=== PATIENT | male | born 1970 | race African-American/Black ===

== ENCOUNTER 2019-02-04 14:31 | Emergency (ER) | payer BC, OTHER ==
--- OUTSIDE RECORDS SUMMARY | 2019-02-04 14:34 | XMS REPORT ---
:1970 Author Organization [facility] Address [address] [place] [address] Care Team Providers Name Role Phone Unavailable Unavailable Unavailable Problems This patient has no known problems. Allergies, Adverse Reactions, Alerts This patient has no known allergies or adverse reactions. Medications This patient has no known medications. Encounters Start End Encounter Admission Attending Care Care Encounter Date/Time Date/Time Type Type Clinicians Facility Department ID 2018-10-06 2018-10-06 Emergency E [facility] [id number] 15:43:00 15:43:00
[2019-02-04] MEDS ORDERED: dexAMETHasone 10 MG/ML VIAL ONE (15:23)
[2019-02-04] MEDS ORDERED: ALBUTEROL 2.5 MG/3 ML NEB SOL ONE (15:36)
--- NOTE | 2019-02-04 16:54 | EDPHYS ---
[facility] Name: Vita Singer Age: 49 yrs Sex: Male : 1970 Arrival Date: 02/04/2019 Time: 14:45 Bed 14 Private MD: ED Physician Oh Styles HPI: 02/04 15:23 This 49 yrs old presents to ER via Ambulatory with complaints of Cough, Vomiting, jmm Sneezing, Chest Pain. 15:23 The patient or guardian reports cough. Onset: The symptoms/episode began/occurred jmm gradually. Modifying factors: The symptoms are alleviated by nothing, the symptoms are aggravated by nothing. Associated signs and symptoms: Pertinent positives: chest pain, with cough, Pertinent negatives: fever. This is a 49 year old male with no chronic medical conditions that presents to the ED with complaints of cough, congestion, vomiting. Patient complains of chest pain after cough. Vomiting occurs after vomiting. . Historical: - Allergies: 14:52 No Known Allergies; rv - Home Meds: 14:52 None [Active]; rv - PMHx: 14:52 None; rv - PSHx: 14:52 thyroid surgery; rv - Immunization history:: Adult Immunizations up to date. - Social history:: Smoking status: Patient/guardian denies using tobacco. - Ebola Screening: : No symptoms or risks identified at this time. ROS: 16:25 Constitutional: Positive for body aches, chills. jmm 16:25 Cardiovascular: Positive for chest pain, with cough. 16:25 Respiratory: Positive for cough. 16:25 Abdomen/GI: Positive for nausea, vomiting, Negative for abdominal pain, diarrhea. 16:25 All other systems are negative. Exam: 16:25 Constitutional: This is a well developed, well nourished patient who is awake, alert, jmm and in no acute distress. Head/Face: atraumatic. Eyes: EOMI, no conjunctival erythema appreciated ENT: Moist Mucus Membranes Neck: Trachea midline, Supple Chest/axilla: Normal chest wall appearance and motion. Cardiovascular: Regular rate and rhythm. No edema appreciated Respiratory: Normal respirations, no respiratory distress appreciated Abdomen/GI: Non distended, soft Back: Normal ROM 16:25 Skin: General appearance color normal MS/ Extremity: Moves all extremities, no obvious deformities appreciated, no edema noted to the lower extremities Neuro: Awake and alert, normal gait Psych: Behavior is normal, Mood is normal, Patient is cooperative and pleasant 16:25 Abdomen/GI: Inspection: abdomen appears normal, Bowel sounds: normal, Palpation: abdomen is soft and non-tender, in all quadrants. Vital Signs: 14:50 BP 153 / 105; Pulse 100; Resp 19; Temp 98.1; Pulse Ox 98% ; Weight 136.08 kg; Height 5 rv ft. 8 in. (172.72 cm); Pain 0/10; 15:50 BP 149 / 105; Pulse 86; Resp 18; Pulse Ox 100% on R/A; rb1 16:43 BP 151 / 106; Pulse 89; Resp 18; Pulse Ox 99% on R/A; Pain 0/10; rb1 14:50 Body Mass Index 45.61 (136.08 kg, 172.72 cm) rv MDM: 15:02 Patient medically screened. [facility] 16:26 Data reviewed: vital signs, nurses notes. Counseling: I had a detailed discussion with teresa the patient and/or guardian regarding: the historical points, exam findings, and any diagnostic results supporting the discharge/admit diagnosis, the need for outpatient follow up, to return to the emergency department if symptoms worsen or persist or if there are any questions or concerns that arise at home. ED course: Patient is alert and non toxic in appearance in the ED. Patient is advised to follow up with pcp and otherwise given strict return precautions. Patient understood and agrees with the plan of care. . Administered Medications: 15:24 Drug: Decadron 10 mg Route: IM; Site: right deltoid; rb1 15:40 Follow up: Response: No adverse reaction rb1 15:37 Drug: Albuterol 2.5 mg Route: Inhalation; rb1 16:02 Drug: Albuterol 2.5 mg Route: Inhalation; rb1 16:25 Drug: Albuterol 2.5 mg Route: Inhalation; rb1 Disposition: 02/04/19 16:27 Discharged to Home. Impression: Acute bronchitis. - Condition is Stable. - Discharge Instructions: Acute Bronchitis, Adult. - Prescriptions for promethazine- DM - take 5 milliliter by ORAL route every 4-6 hours; 120 milliliter. Zithromax Z- Oleksandr 250 mg Oral Tablet - take 1 tablet by ORAL route as directed for 5 days Day 1 - take two (2) tablets one time. Day 2, 3, 4 , 5 take one (1) tablet once daily.; 6 tablet. Albuterol Sulfate 90 mcg/actuation - inhale 1-2 puff by INHALATION route every 4-6 hours; 1 Inhaler. - Medication Reconciliation Form, Thank You Letter, Antibiotic Education, Prescription Opioid Use form. - Follow up: Private Physician; When: 2 - 3 days; Reason: Recheck today's complaints, Continuance of care, Re-evaluation by your physician. Addendum: 02/12/2019 07:28 Co-signature as Attending Physician, Oh Styles MD. m a2 Signatures: Thiago Harrison PA PA jmm Barber, Rebecca, RN RN rb1 Oh Styles MD MD ma2 Graham Jurado RN RN rv Corrections: (The following items were deleted from the chart) 02/04 16:44 16:27 02/04/2019 16:27 Discharged to Home. Impression: Acute bronchitis. Condition is rb1 Stable. Forms are Medication Reconciliation Form, Thank You Letter, Antibiotic Education, Prescription Opioid Use. Follow up: Private Physician; When: 2 - 3 days; Reason: Recheck today's complaints, Continuance of care, Re-evaluation by your physician. teresa
--- NOTE | 2019-02-04 16:55 | ER ---
Nurse's Notes [facility] Name: Vita Singer Age: 49 yrs Sex: Male : 1970 Arrival Date: 02/04/2019 Time: 14:45 Bed 14 Private MD: Diagnosis: Acute bronchitis Presentation: 02/04 14:47 Presenting complaint: Patient states: checked on urgent care and diagnosed with rv Bronchitis. coughing a lot until vomits, then complains of SOB and chest pain after that. denies any fever and/or abdominal pain. Transition of care: patient was not received from another setting of care. Onset of symptoms was February 02, 2019 at 08:00. Risk Assessment: Do you want to hurt yourself or someone else? Patient reports no desire to harm self or others. Initial Sepsis Screen: Does the patient meet any 2 criteria? No. Patient's initial sepsis screen is negative. Does the patient have a suspected source of infection? No. Patient's initial sepsis screen is negative. Care prior to arrival: None. 14:47 Method Of Arrival: Ambulatory rv 14:47 Acuity: TALISHA 4 rv Triage Assessment: 14:53 General: Appears in no apparent distress. Behavior is calm, cooperative. Pain: Denies rv pain. Cardiovascular: Patient's skin is warm and dry. Respiratory: Airway is patent. GI: Reports vomiting. Historical: - Allergies: 14:52 No Known Allergies; rv - Home Meds: 14:52 None [Active]; rv - PMHx: 14:52 None; rv - PSHx: 14:52 thyroid surgery; rv - Immunization history:: Adult Immunizations up to date. - Social history:: Smoking status: Patient/guardian denies using tobacco. - Ebola Screening: : No symptoms or risks identified at this time. Screenin:55 Abuse screen: Denies threats or abuse. Nutritional screening: No deficits noted. rb1 Tuberculosis screening: No symptoms or risk factors identified. Fall Risk None identified. Assessment: 14:55 General: Appears in no apparent distress. comfortable, obese, Behavior is calm, rb1 cooperative, Denies fever. General: Pt. reports being diagnosed with Bronchitis on Sunday at Urgent Care.. Pain: Complains of pain in chest Pain at worst was 8 out of 10 on a pain scale. Aggravated by coughing. Neuro: Level of Consciousness is awake, alert, obeys commands, Oriented to person, place, time, situation. Cardiovascular: Capillary refill < 3 seconds is brisk in bilateral fingers. Respiratory: Reports shortness of breath while coughing cough that is productive, Yellow sputum Airway is patent Respiratory effort is even, unlabored, Respiratory pattern is regular, symmetrical. GI: Parent/caregiver reports the patient having vomiting, cough induces vomiting. GI: Patient currently denies abdominal pain. : No deficits noted. Derm: Skin is pink, warm \T\ dry. 15:55 Reassessment: Patient appears in no apparent distress at this time. No changes from rb1 previously documented assessment. 16:35 Reassessment: Patient appears in no apparent distress at this time. Patient and/or rb1 family updated on plan of care and expected duration. Pain level reassessed. Patient is alert, oriented x 3, equal unlabored respirations, skin warm/dry/pink. Patient denies pain at this time. Patient states symptoms have improved. Vital Signs: 14:50 BP 153 / 105; Pulse 100; Resp 19; Temp 98.1; Pulse Ox 98% ; Weight 136.08 kg; Height 5 rv ft. 8 in. (172.72 cm); Pain 0/10; 15:50 BP 149 / 105; Pulse 86; Resp 18; Pulse Ox 100% on R/A; rb1 16:43 BP 151 / 106; Pulse 89; Resp 18; Pulse Ox 99% on R/A; Pain 0/10; rb1 14:50 Body Mass Index 45.61 (136.08 kg, 172.72 cm) rv ED Course: 14:45 Patient arrived in ED. am2 14:50 Triage completed. rv 14:53 Thiago Harrison PA is PHCP. [facility] 14:53 Arm band placed on Patient placed in the treatment room, on a stretcher, on pulse rv oximetry, Patient notified of wait time. EKG completed in triage. Results shown to MD. 14:54 Oh Styles MD is Attending Physician. [facility] 14:54 Rhea Middleton, STEFANO is Primary Nurse. rb1 14:55 Patient has correct armband on for positive identification. Bed in low position. Call rb1 light in reach. Side rails up X 1. Pulse ox on. NIBP on. 16:43 No provider procedures requiring assistance completed. Patient did not have IV access rb1 during this emergency room visit. Administered Medications: 15:24 Drug: Decadron 10 mg Route: IM; Site: right deltoid; rb1 15:40 Follow up: Response: No adverse reaction rb1 15:37 Drug: Albuterol 2.5 mg Route: Inhalation; rb1 16:02 Drug: Albuterol 2.5 mg Route: Inhalation; rb1 16:25 Drug: Albuterol 2.5 mg Route: Inhalation; rb1 Outcome: 16:27 Discharge ordered by . teresa 16:43 Discharged to home ambulatory, with family. rb1 16:43 Condition: stable 16:43 Discharge instructions given to patient, Instructed on discharge instructions, follow up and referral plans. medication usage, Demonstrated understanding of instructions, follow-up care, medications, Prescriptions given X 3. 16:44 Patient left the ED. rb1 Signatures: Thiago Harrison PA PA jmm Barber, Rebecca, RN RN rb1 Jodie Moreno am2 Graham Jurado RN RN rv
[2019-02-04 17:06] VITALS: TEMP 98.1
[2019-02-04 17:09] VITALS: BP 151/106; O2SAT 99
== END 2019-02-04 16:44 | disposition home or self-care (01) ==
LOC: ER 14:31
DX: J20.9 Acute bronchitis, unspecified (principal)
CPT/HCPCS: 96372; 99284; J1100